=== PATIENT | male | born 1945 | race Caucasian/White ===

== ENCOUNTER → 2018-08-20 14:11 | Outpatient (CLI) | payer MEDICARE, SELFPAY | PROVIDERS: Family Provider Family Medicine; PCP Family Medicine; Visit Provider Physician Assistant | DX: M70.21 Olecranon bursitis, right elbow (principal) | CPT/HCPCS: 89060 ==

== ENCOUNTER → 2019-04-18 08:45 | Outpatient (CLI) | payer MEDICARE, SELFPAY ==
--- NOTE | 2019-04-18 | DI.US.S_ITS ---
PROCEDURE: US ABD AORTA ANEURYSM SCREEN INDICATIONS: SCREENING FOR CARDIOVASCULAR DISORDERS TECHNIQUE: Real time scanning was performed of the aorta and iliac arteries, with image documentation. COMPARISON: None. FINDINGS: Aorta: Proximal aortic obscured by overlying bowel. Mid-aorta measures 2.0 cm. Distal aortic diameter is 1.6 cm. Iliac arteries: Right common iliac artery measures 1.3 cm. Left common iliac artery measures 1.3 cm. IMPRESSION: Proximal aorta not well visualized; otherwise normal aortoiliac caliber. Dictated by: Mat CONWAY Interpreted: Karla Gonzalez MD on 04/18/2019 at 10:20 Approved by: Karla Gonzalez M.D. on 04/18/2019 at 12:10
== END ==
PROVIDERS: Family Provider Family Medicine; PCP Family Medicine; Visit Provider Family Medicine
DX: Z13.6 Encounter for screening for cardiovascular disorders (principal)
CPT/HCPCS: 76706

== ENCOUNTER 2025-02-16 06:37 | Emergency (ER) | payer MEDICARE, SELFPAY ==
[2025-02-16] VITALS (12 sets, daily range): BP systolic 130–187; BP diastolic 74–103; PULSE 66–84; RESP 15–24; TEMP 36.5; O2SAT 95–99; BMI 24.3
--- NOTE | 2025-02-16 06:50 | DI.RAD.S_ITS ---
PROCEDURE: XR CHEST 1V INDICATIONS: Chest Pain TECHNIQUE: One view of the chest was acquired. COMPARISON: [facility], , CHEST 2 VIEW, 10/01/2014, 7:45. FINDINGS AND IMPRESSION: On this single view study, no consolidation or pleural effusion is seen. Low lung volumes. Unchanged mediastinal contours. Heart size is at the upper limit of normal. Degenerative osseous changes. Dictated by: Paxton Walton M.D. on 02/16/2025 at 8:18 Approved by: Paxton Walton M.D. on 02/16/2025 at 8:19
--- NOTE | 2025-02-16 06:53 | EKG_ITS ---
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
--- NOTE | 2025-02-16 06:59 | ED_ITS ---
[facility] - General Adult General Chief complaint: Hypertension Stated complaint: High blood pressure Time Seen by Provider: 02/16/25 06:59 Source: patient and family Mode of arrival: Ambulatory History of Present Illness HPI narrative: Patient is a 79-year-old male with a past medical history significant for hypertension, coronary artery disease status post stent placement in 2019 on aspirin and Plavix as well as hydrochlorothiazide for hypertension here for dizziness. 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 Starting at approximately 11:00 p.m. he reported not feeling well and described feeling woozy. He ended up sleeping on the recliner and woke up at about 4:00 a.m. with similar symptoms. He checked his blood pressure at that time and it was over 200 he ended up taking 1 dose of nitroglycerin and noted some improvement in blood pressure then started to rise again prompting his ER visit. He did take a dose of hydrochlorothiazide prior to arrival. He describes a mild right occipital headache although denies any recent head injury or trauma he denies any double vision, facial droop, localized weakness or numbness, slurred speech or confusion. No history of stroke. He denies chills or sweats. Has chronic congestion and cough. No chest pain but noticed mild palpitations. His heart rate at the time was 103. He denies shortness of breath. He denies abdominal pain. He does admit to mild nausea without vomiting or diarrhea. No dysuria. No history of pancreatitis or diverticulitis. Still has his gallbladder. Denies regular alcohol use or illicit drug use. Related Data Home Medications ?Medication ?Instructions ?Recorded ?Confirmed lisinopril 20 mg tablet 20 mg PO DAILY 12/08/1707/27 atorvastatin 10 mg tablet 10 mg PO BEDTIME 07/01/18 Allergies Allergy/AdvReac Type Severity Reaction Status Date / Time codeine AdvReac Verified 02/16/25 06:53 Review of Systems Review of Systems Narrative: As noted in the HPI Patient History Social History Smoking Status: Former smoker Smoking Status: Former smoker Exam Narrative Exam Narrative: VS as noted above Focused physical exam as follows: General: Well developed, well nourished, no acute distress HEENT: pink palpebral conjunctiva, anicteric sclera, CAMILLA, no nystagmus, moist mucous membranes, no JVD, no cervical lymphadenopathy Lungs: no respiratory distress, clear to auscultation without wheezes or crackles; equal breath sounds Heart: normal rate, regular rhythm, no appreciable murmurs Abdomen: soft, nontender, no rebound or rigidity Musculoskeletal: no gross deformities with full ROM in all extremities, no pedal edema Skin: pink, warm; no rashes Neuro: ?AAOx3, GCS 15, nonfocal exam with equal strenght and sensation in all extremities Psyche: no SI/HI, normal affect Initial Vital Signs Initial Vital Signs: Vital Signs Blood Pressure 187/103 H 02/16/25 06:42 Course Orders Ordered: Discontinued Medications Ondansetron HCl (Ondansetron 4 Mg/2 Ml Inj) 4 mg IV NOW ONE Stop: 02/16/25 07:34 Last Admin: 02/16/25 08:15 Dose: 4 mg Documented By: JSOAFAT Vital Signs Vital signs: Vital Signs - 8 hr 02/16/25 06:42 02/16/25 06:43 02/16/25 06:53 Temperature 97.7 F Pulse Rate 82 84 Respiratory Rate 16 Blood Pressure 187/103 H 187/103 H Pulse Oximetry 98 99 Oxygen Delivery Method Room Air 02/16/25 06:59 02/16/25 07:00 02/16/25 07:01 Temperature Pulse Rate 76 77 Respiratory Rate 15 16 Blood Pressure 160/85 H Pulse Oximetry 97 96 Oxygen Delivery Method 02/16/25 07:30 02/16/25 07:30 02/16/25 07:38 Temperature Pulse Rate 78 Respiratory Rate 23 Blood Pressure 160/83 H 155/74 H Pulse Oximetry 97 Oxygen Delivery Method 02/16/25 07:38 Temperature Pulse Rate 70 Respiratory Rate 22 Blood Pressure Pulse Oximetry 97 Oxygen Delivery Method Medical Decision Making Lab Data 02/16/25 06:55 02/16/25 06:55 Labs: Lab Results 02/16/25 02/16/25 Range/Units 06:55 08:50 WBC 7.6 (4.5-11.0) X10^3/uL RBC 4.77 (4.5-5.9) X10^6/uL Hgb 15.3 (13.5-17.5) g/dL Hct 41.4 (41-53) % MCV 86.9 (80-100) fL MCH 32.1 (26-34) PG MCHC 37.0 H (30-36) % RDW 14.7 (11.6-14.8) % Plt Count 198 (150-400) X10^3/uL Neut % (Auto) 67.9 (50-75) % Lymph % (Auto) 16.4 L (25-40) % Dougherty % (Auto) 11.2 (3-14) % Eos % (Auto) 3.8 (2-4) % Baso % (Auto) 0.7 (0-2) % Neut # (Auto) 5200 (5817-1689) /uL Lymph # (Auto) 1300 (5815-8113) /uL Dougherty # (Auto) 900 (0-900) /uL Eos # (Auto) 300 (0-450) /uL Baso # (Auto) 100 (0-100) /uL RBC Morphology Not Reportable Anisocytosis 2+ H PT 11.5 (9.4-12.5) SECONDS INR 1.0 (0.9-1.3) APTT 27 (25.1-36.5) SECONDS Sodium 137 (137-145) mmol/L Potassium 3.6 (3.4-5.1) mmol/L Chloride 104 (98-107) mmol/L Carbon Dioxide 25 (22-32) mmol/L BUN 17 (9-20) mg/dL Creatinine 0.90 (0.66-1.25) mg/dL Estimated GFR > 60 (>60) mL/min BUN/Creatinine Ratio 18.9 (6-22) Glucose 98 (70-99) mg/dL Calcium 8.7 (8.4-10.2) mg/dL Magnesium 2.1 (1.6-2.3) mg/dL Total Bilirubin 1.6 H (0.2-1.3) mg/dL AST 34 (17-59) IU/L ALT 19 (<50) IU/L Alkaline Phosphatase 81 (38-126) U/L Total Creatine Kinase 82 (55-170) U/L Troponin I 0.030 0.026 (0.01-0.034) ng/mL NT-Pro-B Natriuret Pep 249 (<450) pg/mL Total Protein 7.0 (6.3-8.2) g/dL Albumin 4.3 (3.5-5.0) g/dL Globulin 2.7 (1.7-4.1) g/dL Albumin/Globulin Ratio 1.6 (1.0-2.8) Lipase 110 (23-300) U/L Imaging Data CT scan - head: My Impression: No acute intracranial pathology Chest x-ray: My Impression: No acute process ECG Data Interpretation: 0700 - NSR @ 72; no STTW changes; QTc 464 MDM Narrative Medical decision making narrative: HPI, PMHx, PSHx, Medication list, Allergies, ROS and Focused exam were reviewed above. ?Differential diagnosis as noted below. ?Social determinants affecting care considered. ?All of these were taken into consideration warranting above listed work up. ?Consultations as deemed necessary were documented below (if listed). Labs (if ordered and noted) were independently reviewed by me. Imaging studies (if ordered and noted) were independently reviewed by me EKG (if noted) was independently reviewed by me External documents (if reviewed) are documented above Initial VS noted above. ? Differential diagnosis considered include (but not limited to) the following: uncontrolled HTN, intracranial hemorrhage, CVA/TIA, ACS, cardiac dysrhythmia, hypo/hyperglycemia, electrolyte imbalance, dehydration, symptomatic anemia, pneumonia, viral resp illness, adverse effect of illicit drug/ETOH, UTI, pyelo Pt interviewed and examined. Nonfocal neuro exam. BP improved when rechecked. No complaints of chest pain. Work up initiated to include CT head considering headache, HTN. Zofran ordered for nausea. Labs reviewed - unremarkable including initial and repeat Troponin. CT head and CXR unremarkable. No ectopy noted on telemetry. BP rechecked and improved. Discussed work up thus far and plan of care. Stable for discharge with return precautions. Discharge Plan Departure Patient Disposition: Home Clinical Impression: Dizziness, Benign essential hypertension Instructions: DI for High Blood Pressure Activity Restrictions/Additional Instructions: Evaluation today was generally reassuring with no serious cause of your symptoms. Take extra time and caution with ambulation. Drink plenty of fluids and eat at regular intervals. Take BP meds regularly. Check BP daily and record. Follow up with your regular doctor as needed. Return to the ER if with worsening symptoms. Prescriptions: No Action lisinopril 20 mg tablet 20 mg PO DAILY atorvastatin 10 mg tablet 10 mg PO BEDTIME Referrals: Chucky Head MD [[facility]] Stand Alone Forms: Patient Portal/API
[2025-02-16 07:04] LABS: Add Manual Diff / Slide Review NO; Hematocrit 41.4 % (41-53); Hemoglobin 15.3 g/dL (13.5-17.5); Lymphocytes Absolute Auto 1300 /uL (1100-4500); Mean Corpuscular HGB Conc 37.0 % (30-36); Mean Corpuscular Hemoglobin 32.1 PG (26-34); Mean Corpuscular Volume 86.9 fL (80-100); Platelet Count 198 X10^3/uL (150-400)
[2025-02-16 07:15] LABS: Alanine Aminotransferase 19 IU/L (<50); Albumin 4.3 g/dL (3.5-5.0); Albumin Globulin Ratio 1.6 (1.0-2.8); Alkaline Phosphatase 81 U/L (38-126); Blood Urea Nitrogen 17 mg/dL (9-20); Calcium 8.7 mg/dL (8.4-10.2); Carbon Dioxide 25 mmol/L (22-32); Chloride 104 mmol/L (98-107); Creatine Kinase 82 U/L (55-170); Estimated Glomerular Filt Rate > 60 mL/min (>60); Globulin 2.7 g/dL (1.7-4.1); Glucose 98 mg/dL (70-99); HEMOLYSIS < 15 (0-50); Lipase 110 U/L (23-300); Magnesium 2.1 mg/dL (1.6-2.3); Potassium 3.6 mmol/L (3.4-5.1); Sodium 137 mmol/L (137-145); Total Protein 7.0 g/dL (6.3-8.2)
[2025-02-16 07:16] LABS: INR 1.0 (0.9-1.3); Prothrombin Time 11.5 SECONDS (9.4-12.5)
[2025-02-16 07:19] LABS: PTT Partial Thromboplastin Tim 27 SECONDS (25.1-36.5)
[2025-02-16 07:23] LABS: Anisocytosis 2+
[2025-02-16 07:27] LABS: NT-proBNP (BNP-Adult 18+) 249 pg/mL (<450); Troponin I 0.030 ng/mL (0.01-0.034)
--- NOTE | 2025-02-16 07:32 | DI.CT.S_ITS ---
PROCEDURE: CT HEAD/BRAIN WO CON INDICATIONS: headache, hypertension, weakness TECHNIQUE: Noncontrast 4.5 mm thick angled axial sections acquired from the foramen magnum to the vertex, with coronal and sagittal reformats. For radiation dose reduction, the following was used: automated exposure control, adjustment of mA and/or kV according to patient size. COMPARISON: None. FINDINGS: Image quality: Diagnostic. CSF spaces: Basal cisterns are patent. No extra-axial fluid collections. The ventricles are symmetric in size and shape. Brain: No intracranial bleeds or mass effect. There is cerebral volume loss, with resultant ventricular and sulcal prominence. There are periventricular and deep white matter chronic small vessel ischemic changes. There is intracranial internal carotid artery atherosclerosis. Skull and face: Calvarium and visualized facial bones appear intact, without suspicious lesions. Sinuses: Visualized sinuses and mastoids are clear. IMPRESSION: No acute intracranial pathology. Dictated by: Archie Dean M.D. on 02/16/2025 at 8:05 Approved by: Archie Dean M.D. on 02/16/2025 at 8:06
[2025-02-16] MEDS: ONDANSETRON 4 MG/2 ML INJ IV (08:15)
--- NOTE | 2025-02-16 09:25 | PC.NURSE ---
0749 Assumed care of pt at 0700. Pt states that he felt whoozy this morning when he woke up & bp was 200s systolic at home. Hx of HTN & PA & stent placement in 2019 and that this feels similar to when he had his heart attack. C/o nausea. Denies cp & sob. A&Ox4.
[2025-02-16 09:32] LABS: Troponin I 0.026 ng/mL (0.01-0.034)
== END 2025-02-16 11:23 | disposition home or self-care (01) ==
PROVIDERS: Emergency Medicine; Emergency Provider Emergency Medicine; Family Provider Family Medicine; PCP Family Medicine
DX: I10 Essential (primary) hypertension (principal); R42 Dizziness and giddiness; Z95.5 Presence of coronary angioplasty implant and graft; Z79.01 Long term (current) use of anticoagulants; Z79.899 Other long term (current) drug therapy
CPT/HCPCS: 36415; 70450; 71045; 80053; 82550; 83690; 83735; 83880; 84484; 85025; 85610; 85730; 93005; 96374; 99284; J2405

== ENCOUNTER → 2025-02-26 06:49 | Outpatient (CLI) | payer MEDICARE, SELFPAY | PROVIDERS: Family Provider Family Medicine; PCP Family Medicine; Referring Provider Family Medicine; Visit Provider Internal Medicine | DX: I25.10 Atherosclerotic heart disease of native coronary artery without angina pectoris (principal); I51.7 Cardiomegaly | CPT/HCPCS: 93306 ==

== ENCOUNTER → 2025-04-02 06:35 | Outpatient (CLI) | payer MEDICARE, SELFPAY ==
--- NOTE | 2025-04-02 06:41 | DI.US.S_ITS ---
PROCEDURE: US SCROTUM INDICATIONS: PAINFUL SCROTUM TECHNIQUE: Real-time scanning was performed of the scrotum and testicles, with image documentation. Color and pulse Doppler interrogation was performed of both testicles. COMPARISON: None. FINDINGS: Right: Testicle is normal in size and homogenous in echotexture. Simple cyst is present measuring 0.5 cm. Epididymis is normal in overall size and morphology. No hydrocele or varicoceles. Overlying scrotal skin is normal in thickness. Left: Testicle is normal in size and homogeneous in echotexture. Simple appearing cysts are present measuring up to 0.8 cm. Epididymis is normal in overall size and morphology. Small hydrocele and varicocele. Overlying scrotal skin is normal in thickness. Doppler: Color and pulse Doppler demonstrate normal and symmetric arterial flow in both testicles. IMPRESSION: Small left hydrocele and varicocele. Simple appearing intratesticular cysts. No evidence of acute torsion. Dictated by: Paxton Walton M.D. on 04/02/2025 at 7:28 Approved by: Paxton Walton M.D. on 04/02/2025 at 7:30
== END ==
LOC: US 06:37
PROVIDERS: Family Provider Family Medicine; PCP Family Medicine; Referring Provider Family Medicine; Visit Provider Family Medicine
DX: N50.82 Scrotal pain (principal); N50.89 Other specified disorders of the male genital organs; N43.3 Hydrocele, unspecified; I86.1 Scrotal varices; N44.2 Benign cyst of testis
CPT/HCPCS: 76870; 93975

== ENCOUNTER → 2025-04-24 07:39 | Outpatient (CLI) | payer MEDICARE, SELFPAY ==
[2025-04-24 10:26] LABS: Blood Urea Nitrogen 17 mg/dL (9-20); Calcium 8.9 mg/dL (8.4-10.2); Carbon Dioxide 30 mmol/L (22-32); Chloride 101 mmol/L (98-107); Cholesterol 215 mg/dL (140-199); Estimated Glomerular Filt Rate > 60 mL/min (>60); Glucose 81 mg/dL (70-99); HDL Cholesterol 43 mg/dL (40-60); HEMOLYSIS < 15 (0-50); Potassium 3.5 mmol/L (3.4-5.1); Sodium 139 mmol/L (137-145); Triglycerides 68 mg/dL (35-150)
== END ==
PROVIDERS: Family Provider Family Medicine; PCP Family Medicine; Referring Provider Family Medicine; Visit Provider Internal Medicine
DX: I25.10 Atherosclerotic heart disease of native coronary artery without angina pectoris (principal); I10 Essential (primary) hypertension
CPT/HCPCS: 80048; 80061

== ENCOUNTER → 2025-06-14 11:52 | Outpatient (CLI) | payer MEDICARE, SELFPAY ==
--- NOTE | 2025-06-14 11:53 | DI.US.S_ITS ---
PROCEDURE: US CAROTID DOPPLER BI INDICATIONS: Bilateral carotid artery stenosis; CAD TECHNIQUE: Color and pulse Doppler interrogation was performed of both carotid systems, with image documentation and velocity measurements. COMPARISON: None. FINDINGS: Stenosis calculations are based on SRU (Society of Radiologists in Ultrasound) criteria. Right side: Common carotid artery peak systolic velocity: 51 cm/sec. Internal carotid artery peak systolic velocity: 126 cm/sec. Internal carotid artery end diastolic velocity: 30 cm/sec. External carotid artery peak systolic velocity: 278 cm/sec. ICA/CCA peak systolic ratio: 2.5 . Dominguez scale imaging description: Significant atherosclerotic plaques Percent internal carotid artery stenosis: 50-69% . Vertebral artery: Flow direction is antegrade. Left side: Common carotid artery peak systolic velocity: 69 cm/sec. Internal carotid artery peak systolic velocity: 147 cm/sec. Internal carotid artery end diastolic velocity: 33 cm/sec. External carotid artery peak systolic velocity: 98 cm/sec. ICA/CCA peak systolic ratio: 2.1 Dominguez scale imaging description: Atherosclerotic plaques Percent internal carotid artery stenosis: 50-69% . Vertebral artery: Flow direction is antegrade. IMPRESSION: 1. In the right carotid artery, there is 50-69% stenosis based on peak systolic velocity criteria. Dense calcifications within the proximal right ICA limits evaluation and there is concern for worse stenosis than predicted by ultrasound. Recommend CT angiography for further evaluation. 2. In the left carotid artery, there is 50-69% stenosis based on peak systolic velocity criteria. 3. Antegrade vertebral arteries. 4. Dense calcifications at the proximal right external carotid artery with likely high-grade stenosis. 5. Heterogeneous thyroid gland with increased vascularity. Right lobe is asymmetrically larger than the left. Recommend correlation with thyroid function tests and thyroid ultrasound for further evaluation. Dictated by: Stephen Pace M.D. on 06/15/2025 at 11:15 Approved by: Stephen Pace M.D. on 06/15/2025 at 11:19
== END ==
LOC: US 11:52
PROVIDERS: Family Provider Family Medicine; PCP Family Medicine; Referring Provider Family Medicine; Visit Provider Internal Medicine
DX: I65.23 Occlusion and stenosis of bilateral carotid arteries (principal)
CPT/HCPCS: 93880

== ENCOUNTER → 2025-07-03 07:19 | Outpatient (CLI) | payer MEDICARE, SELFPAY ==
--- NOTE | 2025-07-03 07:22 | DI.US.S_ITS ---
PROCEDURE: US THYROID INDICATIONS: enlarged thyroid gland TECHNIQUE: Real-time scanning was performed of the thyroid gland, with image documentation. COMPARISON: None. FINDINGS: Thyroid: Right lobe measures 5.8 x 2.1 x 2.3 cm. Left lobe measures 4.8 x 1.9 x 2.8 cm. Isthmus is 0.2 cm thick. Echotexture is heterogeneous. Thyroid parenchyma is hyperemic. No concerning thyroid nodule or mass. No pathologic lymphadenopathy.. IMPRESSION: Enlarged heterogeneous thyroid gland. No concerning thyroid nodule or mass. No pathologic lymphadenopathy. ACR TI-RADS definitions and recommendations: TI-RADS 1 (benign): 0 points. FNA not needed. TI-RADS 2 (not suspicious): 2 points. FNA not needed. TI-RADS 3: 3 points. * FNA if 2.5 cm or larger, follow up if 1.5 cm or larger (at 1, 3, and 5 years). TI-RADS 4: 4-6 points. * FNA if 1.5 cm or larger, follow up if 1 cm or larger (at 1, 2, 3, and 5 years). TI-RADS 5: 7 points or more. * FNA if 1 cm or larger, follow up if 0.5 cm or larger (every year for 5 years). Dictated by: Emy Vidal M.D. on 07/03/2025 at 21:56 Approved by: Emy Vidal M.D. on 07/03/2025 at 22:07
== END ==
LOC: US 07:21
PROVIDERS: Family Provider Family Medicine; PCP Family Medicine; Referring Provider Family Medicine; Visit Provider Family Medicine
DX: E04.9 Nontoxic goiter, unspecified (principal)
CPT/HCPCS: 76536